=== PATIENT | male | born 1990 | race Caucasian/White ===

== ENCOUNTER 2020-01-06 16:50 | Emergency (ER) | payer OTHER ==
[~2020-01-06] VITALS: Ht 182.9 cm; Wt 86.4 kg
[2020-01-06] MEDS ORDERED: NORCO 325 MG-51 TA1 PO (19:12)
[2020-01-06] MEDS ORDERED: AMOXICILLIN AND1 TA2 PO (19:12)
[2020-01-06 19:16] VITALS: BP 148/79
== END 2020-01-06 19:16 | disposition home or self-care (01) ==
LOC: ED 16:50
DX: S61.451A Open bite of right hand, initial encounter (principal); W54.0XXA Bitten by dog, initial encounter; Y92.89 Other specified places as the place of occurrence of the external cause
CPT/HCPCS: J1885